=== PATIENT | female | born 1980 | race Caucasian/White ===

== ENCOUNTER 2020-05-07 08:01 | Inpatient (IN) ==
[~2020-05-07 08:01] MED LIST: *HR* HYDROmorphone (PF) 1 MG/ML SYRINGE IVP PRN; *HR* HYDROmorphone 2 MG TABLET PO PRN; *HR* Labetalol 20 MG/4 ML SYRINGE IVP PRN; *HR* OxyCODONE Immed Rel 5 MG TABLET PO PRN; Acetaminophen IV 1,000 MG/100 ML INFUS..BTL IVPB ONE; Famotidine 20 MG/2 ML VIAL IVP ONE; Pregabalin 75 MG CAPSULE PO ONE; Promethazine 6.25 MG in Water for inj. (sterile) 20 ML IVPB PRN; Scopolamine Patch 1.5 MG PATCH.TD72 TD ONE
[2020-05-07] MEDS ORDERED: Ringers Solution, Lactated 1,000 ML IVC SCH (08:30)
[2020-05-07] MEDS ORDERED: *HR* FentaNYL (PF) 100 MCG/2 ML VIAL ONE (08:41)
[2020-05-07] MEDS ORDERED: Dexamethasone 4 MG/ML VIAL ONE (08:41)
[2020-05-07] MEDS ORDERED: *HR* Propofol 200 MG/20 ML VIAL IVP ONE (08:41)
[2020-05-07] MEDS ORDERED: Lidocaine -MPF 2% 2 ML VIAL ONE (08:41)
[2020-05-07] MEDS ORDERED: *HR* Rocuronium Bromide 50 MG/5 ML VIAL ONE ×2 (08:41→12:54)
[2020-05-07] MEDS ORDERED: *HR* Midazolam HCl 2 MG/2 ML VIAL ONE (08:41)
[2020-05-07] MEDS ORDERED: Ondansetron 4 MG/2 ML VIAL ONE (08:41)
[2020-05-07] MEDS ORDERED: *HR* HYDROMORPHONE 2 MG/ML VIAL ONE (08:43)
[2020-05-07] MEDS ORDERED: Clindamycin 900 MG/50 ML 900 MG/50 ML IV.SOLN IVPB ONE (08:53)
[2020-05-07] MEDS ORDERED: EPHEDrine 50 MG/ML VIAL ONE (11:50)
[2020-05-07 11:59] LABS: Basophils % 0.6 %; Eosinophils # 0.1 K/mcL (0.0-0.6); Eosinophils % 1.7 %; Hematocrit 43.9 % (35.3-44.9); Hemoglobin 14.1 g/dL (11.5-15.4); Immature Granulocytes % 0.3 % (0-4); Lymphocytes # 1.9 K/mcL (0.6-4.6); Lymphocytes % 29.9 %; Mean Corpuscular HGB Conc 32.1 g/dL (31.6-35.5); Mean Corpuscular Hemoglobin 30.3 pg (28.0-33.3); Mean Corpuscular Volume 94.2 fL (83.0-100.0); Mean Platelet Volume 10.7 fL (9.4-12.4); Monocytes # 0.4 K/mcL (0.0-1.3); Monocytes % 6.3 %; Neutrophils # 3.9 K/mcL (1.6-8.9); Platelet Count 151 K/mcL (140-400); Red Blood Count 4.66 M/mcL (3.82-4.97); Red Cell Distribution Width 13.1 % (11.5-14.5); Segmented Neutrophils % 61.2 %; White Blood Count 6.3 K/mcL (4.3-11.1)
[2020-05-07 12:31] LABS: BUN/Creatinine Ratio 18 (6-26); Blood Urea Nitrogen 11 mg/dL (6-20); Calcium 9.7 mg/dL (8.6-10.3); Carbon Dioxide 25 mEq/L (23-29); Chloride 107 mEq/L (98-107); Glucose 93 mg/dL (70-105); Osmolality,Calculated 287 (280-300); Sodium 139 mEq/L (136-145); eGFR For African Americans > 60 (> 60); eGFR For Non-African Americans > 60 (> 60)
[2020-05-07] MEDS ORDERED: *HR* Magnesium Sulfate 1 GM/2 ML VIAL ONE (12:40)
[2020-05-07] MEDS ORDERED: *HR* PHENYLEPHRINE 1,000 MCG/10 ML SYRINGE IVP ONE (13:03)
[2020-05-07] MEDS ORDERED: Sugammadex Sodium 200 MG/2 ML VIAL IV ONE (13:22)
[2020-05-07] MEDS ORDERED: Ketorolac 30 MG/ML VIAL ONE (13:28)
[2020-05-07] MEDS ORDERED: Promethazine 6.25 MG in Water for inj. (sterile) 20 ML IVPB PRN (14:48)
[2020-05-07] MEDS ORDERED: *HR* Labetalol 20 MG/4 ML SYRINGE IVP PRN (14:48)
[2020-05-07] MEDS ORDERED: Acetaminophen IV 1,000 MG/100 ML INFUS..BTL IVPB ONE (14:48)
[2020-05-07] MEDS ORDERED: *HR* OxyCODONE Immed Rel 5 MG TABLET PO PRN (14:48)
[2020-05-07] MEDS ORDERED: Ibuprofen 600 MG TABLET PO PRN (14:48)
[2020-05-07] MEDS ORDERED: Suvorexant [Belsomra] 20 MG PO PRN (14:48)
[2020-05-07] MEDS ORDERED: *HR* HYDROmorphone 2 MG TABLET PO PRN (14:48)
[2020-05-07] MEDS ORDERED: Ondansetron 4 MG/2 ML VIAL IVP PRN (14:48)
[2020-05-07] MEDS ORDERED: *HR* HYDROmorphone (PF) 1 MG/ML SYRINGE IVP PRN (14:48)
[2020-05-07] MEDS: 0.9 % Sodium Chloride 1,000 ML IVC SCH (15:12)
[2020-05-07] MEDS: Morphine Sulfate Oral CONC 10 MG/0.5 ML ORAL.SYG SL PRN ×2 (15:41→19:51)
[2020-05-07] MEDS: *HR* OxyCODONE/APAP 5/325 TABLET PO PRN ×2 (16:31→23:32)
[2020-05-07] MEDS: MetroNIDAZOLE 500 MG/100 ML 500 MG/100 ML BAG IVPB SCH ×2 (17:15→23:33)
[2020-05-07] MEDS: Gabapentin 300 MG CAPSULE PO SCH (19:52)
[2020-05-07] MEDS: Nicotine 21 MG PATCH.TD24 TD SCH (20:09)
[2020-05-07] MEDS: Ringers Solution, Lactated 1,000 ML IVC SCH (22:39)
[2020-05-08] MEDS: *HR* OxyCODONE/APAP 5/325 TABLET PO PRN ×4 (03:33→22:04)
[2020-05-08] MEDS: 0.9 % Sodium Chloride 1,000 ML IVC SCH ×2 (03:37→15:20)
[2020-05-08] MEDS: *HR* Enoxaparin 40 MG/0.4 ML SYRINGE SQ SCH (05:44)
[2020-05-08] MEDS: Morphine Sulfate Oral CONC 10 MG/0.5 ML ORAL.SYG SL PRN ×3 (07:13→18:43)
[2020-05-08 07:37] LABS: Basophils % 0.1 %; Eosinophils % 0.2 %; Mean Platelet Volume 10.4 fL (9.4-12.4); Red Blood Count 4.21 M/mcL (3.82-4.97); Segmented Neutrophils % 74.2 %
[2020-05-08 07:38] LABS: Hematocrit 39.5 % (35.3-44.9); Hemoglobin 12.6 g/dL (11.5-15.4); Immature Granulocytes % 0.5 % (0-4); Immature Platelets 3.9 % (1.1-6.1); Lymphocytes # 1.4 K/mcL (0.6-4.6); Lymphocytes % 15.1 %; Mean Corpuscular HGB Conc 31.9 g/dL (31.6-35.5); Mean Corpuscular Hemoglobin 29.9 pg (28.0-33.3); Mean Corpuscular Volume 93.8 fL (83.0-100.0); Monocytes # 0.9 K/mcL (0.0-1.3); Monocytes % 9.9 %; Platelet Count 138 K/mcL (140-400); Red Cell Distribution Width 13.5 % (11.5-14.5); White Blood Count 9.5 K/mcL (4.3-11.1)
[2020-05-08 07:39] LABS: Neutrophils # 7.1 K/mcL (1.6-8.9)
[2020-05-08 07:46] LABS: BUN/Creatinine Ratio 17 (6-26); Blood Urea Nitrogen 12 mg/dL (6-20); Calcium 8.7 mg/dL (8.6-10.3); Carbon Dioxide 26 mEq/L (23-29); Chloride 105 mEq/L (98-107); Glucose 123 mg/dL (70-105); Magnesium 1.8 mg/dL (1.6-2.6); Osmolality,Calculated 285 (280-300); Phosphorous 2.4 mg/dL (2.7-4.5); Potassium 3.9 mEq/L (3.5-5.1); Sodium 137 mEq/L (136-145); eGFR For African Americans > 60 (> 60); eGFR For Non-African Americans > 60 (> 60)
[2020-05-08] MEDS: Nicotine 21 MG PATCH.TD24 TD SCH (08:31)
[2020-05-08] MEDS: Gabapentin 300 MG CAPSULE PO SCH ×2 (08:31→22:04)
[2020-05-08] MEDS: MetroNIDAZOLE 500 MG/100 ML 500 MG/100 ML BAG IVPB SCH ×3 (08:32→23:34)
[2020-05-08] MEDS: Cariprazine Hcl [Vraylar] 3 MG PO SCH (08:35)
[2020-05-08 08:57] LABS: Platelet Estimate Slight Decrease (Normal)
[2020-05-08] MEDS ORDERED: *HR* LORazepam 1 MG TABLET PO ONE (11:37)
[2020-05-08] MEDS: Ringers Solution, Lactated 1,000 ML IVC SCH (14:48)
[2020-05-08] MEDS: *HR* LORazepam 1 MG TABLET PO PRN (22:04)
[2020-05-09] MEDS: Morphine Sulfate Oral CONC 10 MG/0.5 ML ORAL.SYG SL PRN ×3 (02:31→17:00)
[2020-05-09] MEDS: 0.9 % Sodium Chloride 1,000 ML IVC SCH ×2 (02:37→19:58)
[2020-05-09] MEDS: *HR* OxyCODONE/APAP 5/325 TABLET PO PRN ×3 (05:21→19:42)
[2020-05-09] MEDS: *HR* Enoxaparin 40 MG/0.4 ML SYRINGE SQ SCH (05:23)
[2020-05-09 06:27] LABS: Basophils % 0.5 %; Eosinophils # 0.1 K/mcL (0.0-0.6); Eosinophils % 1.7 %; Hematocrit 35.7 % (35.3-44.9); Hemoglobin 11.3 g/dL (11.5-15.4); Immature Granulocytes % 0.3 % (0-4); Lymphocytes # 1.6 K/mcL (0.6-4.6); Lymphocytes % 23.8 %; Mean Corpuscular HGB Conc 31.7 g/dL (31.6-35.5); Mean Corpuscular Hemoglobin 30.3 pg (28.0-33.3); Mean Corpuscular Volume 95.7 fL (83.0-100.0); Mean Platelet Volume 10.7 fL (9.4-12.4); Monocytes # 0.8 K/mcL (0.0-1.3); Platelet Count 120 K/mcL (140-400); Red Blood Count 3.73 M/mcL (3.82-4.97); Red Cell Distribution Width 13.4 % (11.5-14.5); Segmented Neutrophils % 61.7 %; White Blood Count 6.5 K/mcL (4.3-11.1)
[2020-05-09 06:43] LABS: BUN/Creatinine Ratio 11 (6-26); Blood Urea Nitrogen 7 mg/dL (6-20); Calcium 9.1 mg/dL (8.6-10.3); Carbon Dioxide 27 mEq/L (23-29); Chloride 107 mEq/L (98-107); Glucose 119 mg/dL (70-105); Magnesium 1.4 mg/dL (1.6-2.6); Osmolality,Calculated 285 (280-300); Phosphorous 2.2 mg/dL (2.7-4.5); Potassium 3.8 mEq/L (3.5-5.1); Sodium 138 mEq/L (136-145); eGFR For African Americans > 60 (> 60); eGFR For Non-African Americans > 60 (> 60)
[2020-05-09] MEDS: MetroNIDAZOLE 500 MG/100 ML 500 MG/100 ML BAG IVPB SCH ×2 (09:18→16:51)
[2020-05-09] MEDS: Nicotine 21 MG PATCH.TD24 TD SCH (09:18)
[2020-05-09] MEDS: Gabapentin 300 MG CAPSULE PO SCH ×2 (09:19→19:36)
[2020-05-09] MEDS: Cariprazine Hcl [Vraylar] 3 MG PO SCH (09:20)
[2020-05-09] MEDS: Ringers Solution, Lactated 1,000 ML IVC SCH (13:04)
[2020-05-09] MEDS: *HR* LORazepam 1 MG TABLET PO PRN (19:36)
[2020-05-10] MEDS: MetroNIDAZOLE 500 MG/100 ML 500 MG/100 ML BAG IVPB SCH ×2 (00:46→08:12)
[2020-05-10] MEDS: *HR* OxyCODONE/APAP 5/325 TABLET PO PRN ×2 (03:35→08:14)
[2020-05-10 05:19] LABS: Basophils % 0.5 %; Eosinophils # 0.2 K/mcL (0.0-0.6); Hematocrit 35.6 % (35.3-44.9); Hemoglobin 11.3 g/dL (11.5-15.4); Immature Granulocytes % 0.4 % (0-4); Lymphocytes # 1.4 K/mcL (0.6-4.6); Lymphocytes % 19.5 %; Mean Corpuscular HGB Conc 31.7 g/dL (31.6-35.5); Mean Corpuscular Hemoglobin 29.9 pg (28.0-33.3); Mean Corpuscular Volume 94.2 fL (83.0-100.0); Mean Platelet Volume 10.7 fL (9.4-12.4); Monocytes # 0.9 K/mcL (0.0-1.3); Monocytes % 12.2 %; Neutrophils # 4.8 K/mcL (1.6-8.9); Platelet Count 133 K/mcL (140-400); Red Blood Count 3.78 M/mcL (3.82-4.97); Red Cell Distribution Width 13.3 % (11.5-14.5); Segmented Neutrophils % 65.4 %; White Blood Count 7.4 K/mcL (4.3-11.1)
[2020-05-10 05:35] LABS: BUN/Creatinine Ratio 13 (6-26); Blood Urea Nitrogen 8 mg/dL (6-20); Calcium 9.2 mg/dL (8.6-10.3); Carbon Dioxide 26 mEq/L (23-29); Chloride 103 mEq/L (98-107); Glucose 106 mg/dL (70-105); Magnesium 1.1 mg/dL (1.6-2.6); Osmolality,Calculated 285 (280-300); Phosphorous 4.2 mg/dL (2.7-4.5); Potassium 3.4 mEq/L (3.5-5.1); Sodium 138 mEq/L (136-145); eGFR For African Americans > 60 (> 60); eGFR For Non-African Americans > 60 (> 60)
[2020-05-10] MEDS ORDERED: Potassium Chloride 40 MEQ, Lidocaine 1% 2 ML in 0.9 % Sodium Chloride 500 ML IVPB ONE (06:10)
[2020-05-10] MEDS: *HR* Enoxaparin 40 MG/0.4 ML SYRINGE SQ SCH (06:16)
[2020-05-10 07:23] VITALS: BP 113/79
[2020-05-10] MEDS: Nicotine 21 MG PATCH.TD24 TD SCH (08:13)
[2020-05-10] MEDS: Gabapentin 300 MG CAPSULE PO SCH (08:14)
[2020-05-10] MEDS: Cariprazine Hcl [Vraylar] 3 MG PO SCH (08:14)
[2020-05-10] MEDS: *HR* LORazepam 1 MG TABLET PO PRN (08:14)
== END 2020-05-10 14:59 | disposition home or self-care (01) | DRG 230 ==
LOC: SAMDAY 08:01 → 3ANU 08:01
PROVIDERS: ADMIT Surgery; ATTEND Surgery

== ENCOUNTER 2021-10-18 12:57 | Inpatient (IN) ==
[2021-10-18] MEDS ORDERED: Clindamycin 900 MG/50 ML 900 MG/50 ML IV.SOLN IVPB ONE (13:17)
[2021-10-18] MEDS ORDERED: Ringers Solution, Lactated 1,000 ML IVC SCH (13:30)
[2021-10-18] MEDS ORDERED: *HR* OxyCODONE Immed Rel 5 MG TABLET PO PRN (13:55)
[2021-10-18] MEDS ORDERED: Ondansetron 4 MG/2 ML VIAL IVP PRN (13:55)
[2021-10-18] MEDS ORDERED: *HR* Propofol 200 MG/20 ML VIAL IVP ONE (15:49)
[2021-10-18] MEDS ORDERED: *HR* FentaNYL (PF) 100 MCG/2 ML VIAL ONE (15:49)
[2021-10-18] MEDS ORDERED: *HR* Midazolam HCl 2 MG/2 ML VIAL ONE (15:49)
[2021-10-18] MEDS ORDERED: Lidocaine -MPF 2% 2 ML VIAL ONE (15:50)
[2021-10-18] MEDS ORDERED: *HR* Rocuronium Bromide 50 MG/5 ML VIAL ONE ×2 (15:51→17:17)
[2021-10-18] MEDS ORDERED: *HR* Succinylcholine 200 MG/10 ML VIAL IVP ONE (15:51)
[2021-10-18] MEDS ORDERED: Bupivacaine/EPI 1:200k 0.25% 50 ML VIAL ONE (15:56)
[2021-10-18] MEDS ORDERED: *HR* HYDROMORPHONE 2 MG/ML VIAL ONE (16:48)
[2021-10-18] MEDS ORDERED: Ondansetron 4 MG/2 ML VIAL ONE (17:01)
[2021-10-18] MEDS: *HR* HYDROmorphone PF 0.5 MG/0.5 ML SYRINGE IVP PRN ×4 (17:52→18:22)
[2021-10-18] MEDS ORDERED: 0.9 % Sodium Chloride 1,000 ML IVC SCH (21:01)
[2021-10-18] MEDS ORDERED: Ondansetron ODT 4 MG TAB.RAPDIS SL PRN (21:01)
[2021-10-18] MEDS: *HR* OxyCODONE/APAP 5/325 TABLET PO PRN (21:24)
[2021-10-18] MEDS: Clindamycin 900 MG/50 ML 900 MG/50 ML IV.SOLN IVPB SCH (21:25)
[2021-10-18] MEDS: Gabapentin 300 MG CAPSULE PO SCH (21:25)
[2021-10-18] MEDS: *HR* LORazepam 1 MG TABLET PO PRN (21:26)
[2021-10-19] MEDS: *HR* OxyCODONE/APAP 5/325 TABLET PO PRN ×2 (03:57→13:30)
[2021-10-19] MEDS: Clindamycin 900 MG/50 ML 900 MG/50 ML IV.SOLN IVPB SCH (03:58)
[2021-10-19 05:37] LABS: Basophils % 0.2 %; Eosinophils % 0.1 %; Hematocrit 40.5 % (35.3-44.9); Hemoglobin 13.1 g/dL (11.5-15.4); Immature Granulocytes % 0.5 % (0-4); Lymphocytes # 1.2 K/mcL (0.6-4.6); Lymphocytes % 9.2 %; Mean Corpuscular HGB Conc 32.3 g/dL (31.6-35.5); Mean Corpuscular Hemoglobin 32.3 pg (28.0-33.3); Mean Platelet Volume 10.8 fL (9.4-12.4); Monocytes # 0.8 K/mcL (0.0-1.3); Monocytes % 6.2 %; Neutrophils # 10.8 K/mcL (1.6-8.9); Platelet Count 162 K/mcL (140-400); Red Blood Count 4.05 M/mcL (3.82-4.97); Red Cell Distribution Width 12.6 % (11.5-14.5); Segmented Neutrophils % 83.8 %; White Blood Count 12.9 K/mcL (4.3-11.1)
[2021-10-19 06:03] LABS: BUN/Creatinine Ratio 11 (6-26); Blood Urea Nitrogen 9 mg/dL (6-20); Calcium 8.8 mg/dL (8.6-10.3); Carbon Dioxide 20 mEq/L (23-29); Chloride 109 mEq/L (98-107); Glucose 122 mg/dL (70-105); Magnesium 1.5 mg/dL (1.6-2.6); Osmolality,Calculated 286 (280-300); Phosphorous 3.4 mg/dL (2.7-4.5); Potassium 3.8 mEq/L (3.5-5.1); Sodium 138 mEq/L (136-145); eGFR For African Americans > 60 (> 60); eGFR For Non-African Americans > 60 (> 60)
[2021-10-19] MEDS: Gabapentin 300 MG CAPSULE PO SCH ×2 (08:52→20:23)
[2021-10-19] MEDS: *HR* LORazepam 1 MG TABLET PO PRN ×2 (08:53→20:22)
[2021-10-19] MEDS ORDERED: Cariprazine Hcl [Vraylar] 3 MG PO SCH (09:00)
[2021-10-19] MEDS ORDERED: Ketorolac 30 MG/ML VIAL IVP ONE (09:11)
[2021-10-19] MEDS ORDERED: Acetaminophen IV 500 MG/50 ML BAG IVPB ONE (09:13)
[2021-10-19] MEDS: *HR* OxyCODONE Immed Rel 5 MG TABLET PO PRN ×3 (10:35→20:23)
[2021-10-19] MEDS: methocarbamoL 750 MG TABLET PO SCH ×2 (10:35→15:27)
[2021-10-19] MEDS: *HR* Enoxaparin 40 MG/0.4 ML SYRINGE SQ SCH (10:36)
[2021-10-19] MEDS: polyethylene glycoL 3350 17 GM POWD.PACK PO SCH (10:43)
[2021-10-20] MEDS: methocarbamoL 750 MG TABLET PO SCH
[2021-10-20 04:08] VITALS: BP 122/77; PULSE 89; TEMP 98.1; O2SAT 95
[2021-10-20] MEDS: *HR* Enoxaparin 40 MG/0.4 ML SYRINGE SQ SCH (05:48)
[2021-10-20] MEDS: *HR* OxyCODONE/APAP 5/325 TABLET PO PRN (05:48)
[2021-10-20] MEDS: *HR* OxyCODONE Immed Rel 5 MG TABLET PO PRN (08:45)
[2021-10-20] MEDS: Gabapentin 300 MG CAPSULE PO SCH (08:46)
[2021-10-20] MEDS: polyethylene glycoL 3350 17 GM POWD.PACK PO SCH (08:53)
== END 2021-10-20 09:05 | disposition home or self-care (01) | DRG 354 ==
LOC: SAMDAY 12:57 → 3ANU 19:35
PROVIDERS: ADMIT Surgery; ATTEND Surgery